=== PATIENT | female | born 1980 | race American Indian/Alaskan Native ===

== ENCOUNTER 2019-01-08 20:25 | Emergency (ER) | payer SELFPAY ==
--- NOTE | 2019-01-08 21:13 | Emergency Department Report ---
Blank Doc - Documentation Documentation: This is a 38-year-old female that presents with acute on chronic intermittnet lower back pains. Denies any new injuries or urinary symptoms. This initial assessment/diagnostic orders/clinical plan/treatment(s) is/are subject to change based on patient's health status, clinical progression and re- assessment by fellow clinical providers in the ED. Further treatment and workup at subsequent clinical providers discretion. Patient/guardians urged not to elope from the ED as their condition may be serious if not clinically assessed and managed. Initial orders include: 1- Patient sent to [facility] for further evaluation and treatment
[2019-01-08 21:17] VITALS: BP 127/86
== END 2019-01-08 22:52 | disposition left against medical advice (07) ==
LOC: ED 20:25
DX: M54.5 Low back pain (principal); Z53.21 Procedure and treatment not carried out due to patient leaving prior to being seen by health care provider

== ENCOUNTER 2019-11-10 09:37 | Emergency (ER) | payer SELFPAY ==
[2019-11-10] MEDS ORDERED: ASPIRIN 325 MG TAB PO ONE (09:57)
--- NOTE | 2019-11-10 10:30 | XRay Report ---
CHEST 1 VIEW INDICATION: Chest Pain. COMPARISON: None FINDINGS: SUPPORT DEVICES: None. HEART: Within normal limits. LUNGS/PLEURA: No acute air space or interstitial disease. ADDITIONAL FINDINGS: None. IMPRESSION: 1. No acute findings. Signer Name: Arnol Haji MD Signed: 11/10/2019 10:26 AM Workstation Name: [id number]
[2019-11-10] MEDS ORDERED: HYDROmorphone 1 MG/1 ML INJ IV ONE ×2 (10:44→14:12)
[2019-11-10] MEDS ORDERED: SODIUM CHLORIDE 0.9% 1000 ML 2,000 ML IV ONE (10:44)
[2019-11-10] MEDS ORDERED: HALOPERIDOL LACTATE 5 MG/1 ML INJ IM ONE ×2 (10:44→14:12)
[2019-11-10 10:45] LABS: Basophils % (Auto) 0.4 % (0.0-1.8); Eosinophils % (Auto) 0.1 % (0.0-4.3); Hematocrit 36.5 % (30.3-42.9); Hemoglobin 12.3 gm/dl (10.1-14.3); Lymphocytes # (Auto) 1.1 K/mm3 (1.2-5.4); Lymphocytes % (Auto) 18.2 % (13.4-35.0); Mean Corpuscular HGB Conc 34 % (30-34); Mean Corpuscular Volume 85 fl (79-97); Monocytes # (Auto) 0.1 K/mm3 (0.0-0.8); Monocytes % (Auto) 2.3 % (0.0-7.3); Platelet Count 318 K/mm3 (140-440); Red Cell Distribution Width 13.7 % (13.2-15.2)
--- NOTE | 2019-11-10 10:46 | Emergency Department Report ---
ED General Adult HPI - General Chief complaint: Chest Pain Stated complaint: ABDOMINAL/CHEST PAIN/NAUSEA PUI?: No Time Seen by Provider: 11/10/19 10:22 Source: patient, RN notes reviewed, old records reviewed Mode of arrival: Ambulatory Limitations: No Limitations - History of Present Illness Initial comments: During the entire history and physical examination, I am chaperoned by sound equipment mechanic Sariah Jabari Patient is a 39-year-old female. She is not known to myself previously. She was seen in this hospital last month for lower abdominal pain, pelvic pain and cramping pain. She had extensive work-up performed, including pelvic ultrasound, negative for torsion, CT scan of the abdomen pelvis, negative for acute disease. She reports a history of CAD with stents x2. She states that she is not , and she denies DVT and pulmonary embolism risk factors. She presents with a complaint of crampy diffuse lower abdominal pain, which started at 3:00 this morning. Pain is sharp, throbbing and aching. It is all over. It is associated with nausea and vomiting. Emesis is clear, nonbloody and nonbilious. Patient denies irritative/obstructive urinary symptoms. She has occasional relief with hot bath, hot shower. She denies irritative/obstructive urinary symptoms. She has occasional exposure to cannabis. She states that she is not . She states her symptoms today are similar to prior symptoms from last month. Her symptoms are minimally alleviated initially with haloperidol, and hydromorphone. She also endorses anxiety. Her chest wall pain is central, and does not radiate to the back, arms or neck. There is vomiting for her abdominal pain. There is no diaphoresis. The patient does not endorse complaint of exertional shortness of breath. Her chest pain did not start until she started to have nausea and vomiting. -: Sudden, hour(s) Location: chest, abdomen Radiation: abdomen Quality: other Consistency: other Improves with: other Worsens with: other Associated Symptoms: other - Related Data Previous Rx's Medication Instructions Recorded Last Taken Type Ibuprofen [Motrin 600 MG tab] 600 mg PO Q8H PRN #20 tablet 10/03/19 Unknown Rx Ondansetron [Zofran Odt] 4 mg PO Q8HR PRN #14 tab.rapdis 10/03/19 Unknown Rx Acetaminophen [Non-Aspirin Extra 500 mg PO Q6HR PRN #30 tablet 11/10/19 Unknown Rx Strength] DOXYCYCLINE Hyclate [Vibramycin] 100 mg PO Q12HR #28 capsule 11/10/19 Unknown Rx Ghislaine Root [Ghislaine] 250 mg PO QID PRN #30 capsule 11/10/19 Unknown Rx Ibuprofen [Motrin] 600 mg PO Q8H PRN #30 tablet 11/10/19 Unknown Rx Metoclopramide [Reglan] 10 mg PO QID PRN #30 tablet 11/10/19 Unknown Rx Morphine Sulfate [Morphine Sulfate 7.5 mg PO Q6HR PRN #10 tablet 11/10/19 Unknown Rx IR] Allergies Allergy/AdvReac Type Severity Reaction Status Date / Time hydrocodone Allergy Seizure Verified 01/08/19 20:39 ED Review of Systems ROS: Stated complaint: ABDOMINAL/CHEST PAIN/NAUSEA Other details as noted in HPI Constitutional: denies: fever Eyes: denies: eye discharge ENT: denies: congestion Respiratory: denies: cough Cardiovascular: chest pain Gastrointestinal: abdominal pain, nausea, vomiting Genitourinary: denies: dysuria Musculoskeletal: myalgia Skin: denies: lesions Neurological: denies: headache Psychiatric: anxiety Hematological/Lymphatic: as per HPI ED Past Medical Hx - Past Medical History Previous Medical History?: Yes Hx Heart Attack/AMI: Yes (X 2 stents October 2018) Additional medical history: Herniated Disc - Surgical History Past Surgical History?: Yes Hx Coronary Stent: Yes (x 29 October 2018) - Social History Smoking Status: Never Smoker - Medications Home Medications: Home Medications Medication Instructions Recorded Confirmed Last Taken Type Ibuprofen [Motrin 600 MG tab] 600 mg PO Q8H PRN #20 tablet 10/03/19 Unknown Rx Ondansetron [Zofran Odt] 4 mg PO Q8HR PRN #14 tab.rapdis 10/03/19 Unknown Rx Acetaminophen [Non-Aspirin Extra 500 mg PO Q6HR PRN #30 tablet 11/10/19 Unknown Rx Strength] DOXYCYCLINE Hyclate [Vibramycin] 100 mg PO Q12HR #28 capsule 11/10/19 Unknown Rx Ghislaine Root [Ghislaine] 250 mg PO QID PRN #30 capsule 11/10/19 Unknown Rx Ibuprofen [Motrin] 600 mg PO Q8H PRN #30 tablet 11/10/19 Unknown Rx Metoclopramide [Reglan] 10 mg PO QID PRN #30 tablet 11/10/19 Unknown Rx Morphine Sulfate [Morphine Sulfate 7.5 mg PO Q6HR PRN #10 tablet 11/10/19 Unknown Rx IR] ED Physical Exam - General Limitations: Physical Limitation General appearance: alert, anxious, in distress - Head Head exam: Present: atraumatic, normocephalic - Eye Eye exam: Present: normal appearance, EOMI. Absent: nystagmus - ENT ENT exam: Present: normal exam, normal orophraynx, mucous membranes moist, normal external ear exam - Neck Neck exam: Present: normal inspection, full ROM. Absent: tenderness, meningismus - Respiratory Respiratory exam: Present: normal lung sounds bilaterally, chest wall tenderness. Absent: respiratory distress, wheezes, rales, rhonchi, stridor - Cardiovascular Cardiovascular Exam: Present: regular rate, normal rhythm, normal heart sounds. Absent: bradycardia, tachycardia, irregular rhythm, systolic murmur, diastolic murmur, rubs, gallop - GI/Abdominal GI/Abdominal exam: Present: soft, tenderness, normal bowel sounds. Absent: distended, guarding, rebound, rigid, pulsatile mass - External exam: Present: normal external exam. Absent: erythema, ecchymosis, bleeding Speculum exam: Present: normal speculum exam. Absent: erythema, vaginal discharge, foreign body, tissue, laceration Bi-manual exam: Present: cervical motion tendernes, adnexal tenderness, uterine tenderness, other (Chaperoned by sound equipment mechanic Jabari) - Extremities Exam Extremities exam: Present: normal inspection, full ROM, other (2+ pulses noted in the bilateral upper and lower extremities. There is no palpable cord. neg ative Homans sign. Muscular compartments are soft. The pelvis is stable.). Absent: pedal edema, calf tenderness - Back Exam Back exam: Present: normal inspection, full ROM, CVA tenderness (R). Absent: tenderness, CVA tenderness (L), paraspinal tenderness, vertebral tenderness - Neurological Exam Neurological exam: Present: alert, other (No facial droop. Tongue midline. Extraocular movements intact bilaterally. Facial sensation intact to light touch in V1, V2, V3 distribution bilaterally. 5 and a 5 strength in 4 extremities. Sensation intact to light touch in 4 extremities.). Absent: motor sensory deficit - Psychiatric Psychiatric exam: Present: anxious - Skin Skin exam: Present: warm, dry, intact, normal color. Absent: rash ED Course Vital Signs 11/10/19 11/10/19 11/10/19 10:04 10:11 10:30 Temperature 98.4 F Pulse Rate 90 94 H 88 Respiratory 13 24 Rate Blood Pressure 153/92 Blood Pressure [Left] O2 Sat by Pulse 99 100 100 Oximetry 11/10/19 11/10/19 11/10/19 11:00 11:11 11:30 Temperature Pulse Rate 79 Respiratory 18 Rate Blood Pressure 165/90 165/90 Blood Pressure 165/90 [Left] O2 Sat by Pulse 99 100 100 Oximetry 11/10/19 13:28 Temperature Pulse Rate 89 Respiratory 16 Rate Blood Pressure 138/79 Blood Pressure 138/79 [Left] O2 Sat by Pulse 100 Oximetry - Reevaluation(s) Reevaluation #1: 11/10/19 14:59 Differential diagnosis, including but not limited to: Costochondritis, GERD, gastritis, hiatal hernia, pneumonia, colitis, diverticulitis, appendicitis, ovarian cyst, dysfunctional uterine bleeding, pelvic inflammatory disease,, cyclic vomiting syndrome, cannabinoid hyperemesis syndrome Assessment and plan: 39-year-old female with a primary complaint of abdominal pain, nausea and vomiting, diffusely tender, required multiple medicines to help alleviate pain. She was ruled out for ovarian torsion last month. Her CT scan of the abdomen pelvis was negative last month. However, given her impressive pain and initial symptomatology, and obvious discomfort, I elected to obtain CT scan of the abdomen pelvis and repeat duplex ultrasound to exclude emergent interval change. Her objectively imaging studies are negative for acute disease. Her chest wall pain is reproducible. Patient's history of CAD with s tents is reported and appreciated, however, troponin negative x1, EKG #1 is fairly unremarkable, and she endorses her chest wall pain did not start until she started having abdominal pain, nausea and vomiting. I suspect that her chest wall pain is secondary to nausea and vomiting, secondary to abdominal pain. She at this point in time is not currently tachycardic, tachypneic or hypoxic, she denies DVT and pulmonary embolism risk factors, I find her to be low risk by Wells criteria, and she is PERC negative. Repeat troponin, repeat EKG pending. CT scan abdomen pelvis, pelvic ultrasound negative. Still having moderate diffuse abdominal tenderness, Patient will be remedicated. If we cannot control the patient's symptoms in the emergency room, assuming negative troponin and negative EKG x2, I would consider the patient medically suitable to follow-up as an outpatient. We will reassess. Reevaluation #2: 11/10/19 15:37 Patient's pain is much improved. Belly soft on repeat examination. On pelvic exam, the patient has exquisite cervical motion tenderness, uterine tenderness, and bilateral adnexal tenderness. She reports 1 sexual partner, no history of gonorrhea or chlamydia, and denies dyspareunia. Given recurrence of symptoms, nondiagnostic objective imaging, we will treat empirically for pelvic inflammatory disease. Appropriate counseling is provided to patient. Repeat troponin, repeat EKG pending at this time. No active vomiting at this time Reevaluation #3: 11/10/19 16:02 Repeat EKG is unchanged from prior. The patient feels improved. Wet prep shows trichomoniasis. Patient updated and given appropriate counseling ED Medical Decision Making - Lab Data Result diagrams: 11/10/19 10:27 11/10/19 10:27 Lab Results 11/10/19 11/10/19 11/10/19 Range/Units 10:27 10:27 12:18 WBC 6.3 (4.5-11.0) K/mm3 RBC 4.30 (3.65-5.03) M/mm3 Hgb 12.3 (10.1-14.3) gm/dl Hct 36.5 (30.3-42.9) % MCV 85 (79-97) fl MCH 29 (28-32) pg MCHC 34 (30-34) % RDW 13.7 (13.2-15.2) % Plt Count 318 (140-440) K/mm3 Lymph % (Auto) 18.2 (13.4-35.0) % Hale % (Auto) 2.3 (0.0-7.3) % Eos % (Auto) 0.1 (0.0-4.3) % Baso % (Auto) 0.4 (0.0-1.8) % Lymph # 1.1 L (1.2-5.4) K/mm3 Hale # 0.1 (0.0-0.8) K/mm3 Eos # 0.0 (0.0-0.4) K/mm3 Baso # 0.0 (0.0-0.1) K/mm3 Seg Neutrophils % 79.0 H (40.0-70.0) % Seg Neutrophils # 5.0 (1.8-7.7) K/mm3 Sodium 136 L (137-145) mmol/L Potassium 4.1 (3.6-5.0) mmol/L Chloride 100.1 (98-107) mmol/L Carbon Dioxide 22 (22-30) mmol/L Anion Gap 18 mmol/L BUN 8 (7-17) mg/dL Creatinine 0.5 L (0.7-1.2) mg/dL Estimated GFR > 60 ml/min BUN/Creatinine Ratio 16 % Glucose 140 H (65-100) mg/dL Calcium 9.3 (8.4-10.2) mg/dL Troponin T < 0.010 (0.00-0.029) ng/mL Lipase (13-60) units/L HCG, Quant < 2 (0-4) mIU/mL Urine Color (Yellow) Urine Turbidity (Clear) Urine pH (5.0-7.0) Ur Specific [place] (1.003-1.030) Urine Protein (Negative) mg/dL Urine Glucose (UA) (Negative) mg/dL Urine Ketones (Negative) mg/dL Urine Blood (Negative) Urine Nitrite (Negative) Urine Bilirubin (Negative) Urine Urobilinogen (<2.0) mg/dL Ur Leukocyte Esterase (Negative) Urine WBC (Auto) (0.0-6.0) /HPF Urine RBC (Auto) (0.0-6.0) /HPF U Epithel Cells (Auto) (0-13.0) /HPF Urine Mucus /HPF Urine HCG, Qual (Negative) Urine Opiates Screen Urine Methadone Screen Ur Barbiturates Screen Ur Phencyclidine Scrn Ur Amphetamines Screen U Benzodiazepines Scrn Urine Cocaine Screen U Marijuana (THC) Screen Drugs of Abuse Note 11/10/19 11/10/19 11/10/19 Range/Units 12:18 Unknown Unknown WBC (4.5-11.0) K/mm3 RBC (3.65-5.03) M/mm3 Hgb (10.1-14.3) gm/dl Hct (30.3-42.9) % MCV (79-97) fl MCH (28-32) pg MCHC (30-34) % RDW (13.2-15.2) % Plt Count (140-440) K/mm3 Lymph % (Auto) (13.4-35.0) % Hale % (Auto) (0.0-7.3) % Eos % (Auto) (0.0-4.3) % Baso % (Auto) (0.0-1.8) % Lymph # (1.2-5.4) K/mm3 Hale # (0.0-0.8) K/mm3 Eos # (0.0-0.4) K/mm3 Baso # (0.0-0.1) K/mm3 Seg Neutrophils % (40.0-70.0) % Seg Neutrophils # (1.8-7.7) K/mm3 Sodium (137-145) mmol/L Potassium (3.6-5.0) mmol/L Chloride (98-107) mmol/L Carbon Dioxide (22-30) mmol/L Anion Gap mmol/L BUN (7-17) mg/dL Creatinine (0.7-1.2) mg/dL Estimated GFR ml/min BUN/Creatinine Ratio % Glucose (65-100) mg/dL Calcium (8.4-10.2) mg/dL Troponin T (0.00-0.029) ng/mL Lipase 13 (13-60) units/L HCG, Quant (0-4) mIU/mL Urine Color Yellow (Yellow) Urine Turbidity Clear (Clear) Urine pH 9.0 H (5.0-7.0) Ur Specific [place] 1.023 (1.003-1.030) Urine Protein 30 mg/dl (Negative) mg/dL Urine Glucose (UA) Neg (Negative) mg/dL Urine Ketones 80 (Negative) mg/dL Urine Blood Neg (Negative) Urine Nitrite Neg (Negative) Urine Bilirubin Neg (Negative) Urine Urobilinogen < 2.0 (<2.0) mg/dL Ur Leukocyte Esterase Neg (Negative) Urine WBC (Auto) 2.0 (0.0-6.0) /HPF Urine RBC (Auto) 12.0 (0.0-6.0) /HPF U Epithel Cells (Auto) 1.0 (0-13.0) /HPF Urine Mucus 3+ /HPF Urine HCG, Qual (Negative) Urine Opiates Screen Presumptive negative Urine Methadone Screen Presumptive negative Ur Barbiturates Screen Presumptive negative Ur Phencyclidine Scrn Presumptive negative Ur Amphetamines Screen Presumptive negative U Benzodiazepines Scrn Presumptive negative Urine Cocaine Screen Presumptive negative U Marijuana (THC) Screen Presumptive negative Drugs of Abuse Note Disclamer 11/10/19 Range/Units Unknown WBC (4.5-11.0) K/mm3 RBC (3.65-5.03) M/mm3 Hgb (10.1-14.3) gm/dl Hct (30.3-42.9) % MCV (79-97) fl MCH (28-32) pg MCHC (30-34) % RDW (13.2-15.2) % Plt Count (140-440) K/mm3 Lymph % (Auto) (13.4-35.0) % Hale % (Auto) (0.0-7.3) % Eos % (Auto) (0.0-4.3) % Baso % (Auto) (0.0-1.8) % Lymph # (1.2-5.4) K/mm3 Hale # (0.0-0.8) K/mm3 Eos # (0.0-0.4) K/mm3 Baso # (0.0-0.1) K/mm3 Seg Neutrophils % (40.0-70.0) % Seg Neutrophils # (1.8-7.7) K/mm3 Sodium (137-145) mmol/L Potassium (3.6-5.0) mmol/L Chloride (98-107) mmol/L Carbon Dioxide (22-30) mmol/L Anion Gap mmol/L BUN (7-17) mg/dL Creatinine (0.7-1.2) mg/dL Estimated GFR ml/min BUN/Creatinine Ratio % Glucose (65-100) mg/dL Calcium (8.4-10.2) mg/dL Troponin T (0.00-0.029) ng/mL Lipase (13-60) units/L HCG, Quant (0-4) mIU/mL Urine Color (Yellow) Urine Turbidity (Clear) Urine pH (5.0-7.0) Ur Specific [place] (1.003-1.030) Urine Protein (Negative) mg/dL Urine Glucose (UA) (Negative) mg/dL Urine Ketones (Negative) mg/dL Urine Blood (Negative) Urine Nitrite (Negative) Urine Bilirubin (Negative) Urine Urobilinogen (<2.0) mg/dL Ur Leukocyte Esterase (Negative) Urine WBC (Auto) (0.0-6.0) /HPF Urine RBC (Auto) (0.0-6.0) /HPF U Epithel Cells (Auto) (0-13.0) /HPF Urine Mucus /HPF Urine HCG, Qual Negative (Negative) Urine Opiates Screen Urine Methadone Screen Ur Barbiturates Screen Ur Phencyclidine Scrn Ur Amphetamines Screen U Benzodiazepines Scrn Urine Cocaine Screen U Marijuana (THC) Screen Drugs of Abuse Note - EKG Data -: EKG Interpreted by Dc EKG shows normal: sinus rhythm Rate: normal - EKG Data 11/10/19 15:01 Sinus rhythm, 89 bpm, normal axis, QTC prolonged, high left ventricular voltage, and motion artifact. This EKG is not a STEMI. Do not have a prior EKG available for comparison at this time. - Radiology Data Radiology results: report reviewed, image reviewed Print Report Referring Physician: YAIMA BARCLAY Patient Name: ARMEN COOLEY Date of : 1980 Sex: Female Report Date: 2019-11-10 Report Status: [place] [address] Ultrasound Report Signed Patient: ARMEN COOLEY MR#: [id number] : 1980 Acct:[id number] Age/Sex: 39 / F ADM Date: 11/10/19 Loc: ED Attending Dr: Ordering Physician: YAIMA BARCLAY MD Date of Service: 11/10/19 Procedure(s): US pelvis duplex doppler comp Accession Number(s): [id number] cc: YAIMA BARCLAY MD Pelvic Ultrasound HISTORY: acute lower abd pain n/v. TECHNIQUE: Grayscale and color imaging performed. COMPARISON: CT abdomen/pelvis and pelvic ultrasound from 10/03/2019 FINDINGS: Uterus measures 5.2 x 3.4 x 4.4 cm with endometrial echocomplex measuring 8 mm. There is a simple cyst in the left ovary measuring 2.4 cm. Ovaries are otherwise unremarkable with no pelvic free fluid. IMPRESSION: Simple left ovarian cyst. Otherwise unremarkable exam. Signer Name: Arnol Haji MD Signed: 11/10/2019 12:10 PM Workstation Name: [id number] Transcribed By: TARA Dictated By: Arnol Haji MD Electronically Authenticated By: Arnol Haji MD Signed Date/Time: 11/10/19 1210 DD/ 1208 Print Report Referring Physician: YAIMA BARCLAY Patient Name: ARMEN COOLEY Date of : 1980 Sex: Female Report Date: 2019-11-10 Report Status: Finalized Findings [facility] [address] [place] [address] Cat Scan Report Signed Patient: ARMEN COOLEY MR#: [id number] : 1980 Acct:[id number] Age/Sex: 39 / F ADM Date: 11/10/19 Loc: ED Attending Dr: Ordering Physician: YAIMA BARCLAY MD Date of Service: 11/10/19 Procedure(s): CT abdomen pelvis w con Accession Number(s): [id number] cc: YAIMA BARCLAY MD CT ABDOMEN AND PELVIS WITH CONTRAST INDICATION / CLINICAL INFORMATION: MAIN: acute lower abd pain n/v OMNIPAQUE 300 100ML NEG PREG TEST. TECHNIQUE: Axial CT images were obtained through the abdomen and pelvis after 100 mL Omnipaque [address] scans at this location are performed using CT dose reduction for ALARA by means of automated exposure control. COMPARISON: CT abdomen pelvis 10/03/2019 FINDINGS: LOWER CHEST: No significant abnormality. LIVER: No significant abnormality. BILIARY SYSTEM: No significant abnormality. PANCREAS: No significant abnormality. SPLEEN: No significant abnormality. ADRENALS: No significant abnormality. KIDNEYS and URETERS: No significant abnormality. STOMACH / BOWEL: No significant abnormality. PERITONEUM: No free fluid. No free air. No fluid collection. LYMPH NODES: No significant adenopathy. VASCULAR STRUCTURES: No significant abnormality. URINARY BLADDER: No significant abnormality. REPRODUCTIVE ORGANS: 2.0 cm dominant follicle/functional cyst in the left ovary. ADDITIONAL FINDINGS: None. SKELETAL SYSTEM: Mild degenerative sclerotic change adjacent to the left sacroiliac joint. IMPRESSION: 1. No acute process identified within the abdomen or pelvis to account for patient's abdominal pain. Signer Name: Jonna Montoya MD Signed: 11/10/2019 1:28 PM Workstation Name: [id number] Transcribed By: [facility] Dictated By: Jonna Montoya MD Electronically Authenticated By: Jonna Montoya MD Signed Date/Time: 11/10/19 1328 DD/ 1324 TD/TT: Print Report Referring Physician: YAIMA BARCLAY Patient Name: ARMEN COOLEY Date of : 1980 Sex: Female Report Date: 2019-11-10 Report Status: Finalized Findings [facility] [address] [place] [address] XRay Report Signed Patient: ARMEN COOLEY MR#: [id number] : 1980 Acct:[id number] Age/Sex: 39 / F ADM Date: 11/10/19 Loc: ED Attending Dr: Ordering Physician: YAIMA BARCLAY MD Date of Service: 11/10/19 Procedure(s): XR chest 1V ap Accession Number(s): [id number] cc: YAIMA BARCLAY MD Fluoro Time In Minutes: CHEST 1 VIEW INDICATION: Chest Pain. COMPARISON: None FINDINGS: SUPPORT DEVICES: None. HEART: Within normal limits. LUNGS/PLEURA: No acute air space or interstitial disease. ADDITIONAL FINDINGS: None. IMPRESSION: 1. No acute findings. Signer Name: rAnol Haji MD Signed: 11/10/2019 10:26 AM Workstation Name: [id number] Transcribed By: Dictated By: Arnol Haji MD Electronically Authenticated By: Arnol Haji MD Signed Date/Time: 11/10/19 1026 DD/ 1025 TD/TT: Critical care attestation.: If time is entered above; I have spent that time in minutes in the direct care of this critically ill patient, excluding procedure time. ED Disposition Clinical Impression: Acute abdominal pain, Pelvic inflammatory disease, Chest wall pain, Anxiety, Trichomoniasis Nausea and vomiting Qualifiers: Vomiting type: unspecified Vomiting Intractability: non-intractable Qualified Code(s): R11.2 - Nausea with vomiting, unspecified Disposition: DC-01 TO HOME OR SELFCARE Is pt being admited?: No Does the pt Need Aspirin: No Condition: Stable Instructions: Pelvic Inflammatory Disease (ED) Additional Instructions: Please please drink at least 4 to 6 cups of water per day indefinitely. Do not take metformin medication for the next 2 days. Follow-up with a supervisory forester within the next week. Take aspirin on a daily basis, 81 mg [id number]. Follow-up with a cabinet maker or primary care doctor for complaint of chest pain within the next 3 to 5 days. Follow-up with a supervisory forester within the recommended timeframe. Minimize consumption of alcohol, and exposure to tobacco, marijuana, and do not smoke cigarettes, or marijuana. Take the antibiotics, pain medication, nausea medication as needed and directed. . Given all this, you'll be treated empirically for disease called pelvic inflammatory disease. We typically treat young females with unexplained lower abdominal pain to protect your ability to have children safely in the future. Cultures were sent today, and results will be available next 3-5 days. Please have your primary care doctor call the medical records department to obtain your culture results. Take the antibiotic therapy as directed. Take the nausea medication and pain medication as directed. I recommend outpatient testing for sexually transmitted diseases, including hepatitis, syphilis and HIV. I also recommend that you abstain from sexual activity until you have completed her antibiotic therapy, a physician states that it is safe for you to resume sexual activity, and any partners that you have been sexually active with have been tested/treated/evaluated for sexual transmitted diseases. I recommend that you return to the ER right away with worsening pain, migration of pain, intractable nausea/vomiting, inability tolerate liquid feeds. Prescriptions: Ghislaine Root [Ghislaine] 250 mg PO QID PRN #30 capsule PRN Reason: Nausea Morphine Sulfate [Morphine Sulfate IR] 7.5 mg PO Q6HR PRN #10 tablet PRN Reason: Pain , Severe (7-10) Ibuprofen [Motrin] 600 mg PO Q8H PRN #30 tablet PRN Reason: Pain Acetaminophen [Non-Aspirin Extra Strength] 500 mg PO Q6HR PRN #30 tablet PRN Reason: Pain , Severe (7-10) Metoclopramide [Reglan] 10 mg PO QID PRN #30 tablet PRN Reason: Nausea DOXYCYCLINE Hyclate [Vibramycin] 100 mg PO Q12HR #28 capsule Referrals: [facility] [Provider Group] - 3-5 Days [facility] [Provider Group] - 3-5 Days [facility] [Provider Group[facility] - 3-5 Days [facility] [Provider Group] - 3-5 Days [facility] [Provider Group] - 3-5 Days
[2019-11-10 11:06] LABS: BUN/Creatinine Ratio 16; Blood Urea Nitrogen 8 mg/dL (7-17); Calcium 9.3 mg/dL (8.4-10.2); Hemolysis Index 4
[2019-11-10 11:28] LABS: Amphetamine Screen,Urine PRESUMPTIVE NEGATIVE; Benzodiazepines Screen,Urine PRESUMPTIVE NEGATIVE; Cannabinoid Screen,Urine PRESUMPTIVE NEGATIVE; Cocaine Screen,Urine PRESUMPTIVE NEGATIVE; Methadone Screen,Urine PRESUMPTIVE NEGATIVE; Opiate Screen,Urine PRESUMPTIVE NEGATIVE
[2019-11-10 11:36] LABS: Bilirubin,Urine NEG (Negative); Blood,Urine NEG (Negative); Color,Urine Yellow (Yellow); Mucus,Urine 3+ /HPF; Urobilinogen,Urine < 2.0 mg/dL (<2.0)
[2019-11-10 12:01] LABS: HCG Qualitative,Urine Negative (Negative)
--- NOTE | 2019-11-10 12:14 | Ultrasound Report ---
Pelvic Ultrasound HISTORY: acute lower abd pain n/v. TECHNIQUE: Grayscale and color imaging performed. COMPARISON: CT abdomen/pelvis and pelvic ultrasound from 10/03/2019 FINDINGS: Uterus measures 5.2 x 3.4 x 4.4 cm with endometrial echocomplex measuring 8 mm. There is a simple cyst in the left ovary measuring 2.4 cm. Ovaries are otherwise unremarkable with no pelvic bulmaro e fluid. IMPRESSION: Simple left ovarian cyst. Otherwise unremarkable exam. Signer Name: Arnol Haji MD Signed: 11/10/2019 12:10 PM Workstation Name: [id number]
[2019-11-10 13:29] VITALS: BP 138/79
--- NOTE | 2019-11-10 13:33 | Cat Scan Report ---
CT ABDOMEN AND PELVIS WITH CONTRAST INDICATION / CLINICAL INFORMATION: MAIN: acute lower abd pain n/v OMNIPAQUE 300 100ML NEG PREG TEST. TECHNIQUE: Axial CT images were obtained through the abdomen and pelvis after 100 mL Omnipaque [address] scans at this location are performed using CT dose reduction for ALARA by means of automated exposure control. COMPARISON: CT abdomen pelvis 10/03/2019 FINDINGS: LOWER CHEST: No significant abnormality. LIVER: No significant abnormality. BILIARY SYSTEM: No significant abnormality. PANCREAS: No significant abnormality. SPLEEN: No significant abnormality. ADRENALS: No significant abnormality. KIDNEYS and URETERS: No significant abnormality. STOMACH / BOWEL: No significant abnormality. PERITONEUM: No free fluid. No free air. No fluid collection. LYMPH NODES: No significant adenopathy. VASCULAR STRUCTURES: No significant abnormality. URINARY BLADDER: No significant abnormality. REPRODUCTIVE ORGANS: 2.0 cm dominant follicle/functional cyst in the left ovary. ADDITIONAL FINDINGS: None. SKELETAL SYSTEM: Mild degenerative sclerotic change adjacent to the left sacroiliac joint. IMPRESSION: 1. No acute process identified within the abdomen or pelvis to account for patient's abdominal pain. Signer Name: Jonna Montoya MD Signed: 11/10/2019 1:28 PM Workstation Name: [id number]
[2019-11-10 14:05] LABS: INR 1.13 (0.87-1.13)
[2019-11-10] MEDS ORDERED: diphenhydrAMINE 50 MG/ML VIAL IV ONE (14:12)
[2019-11-10] MEDS ORDERED: KETOROLAC 30 MG/1 ML INJ IV ONE (14:53)
[2019-11-10] MEDS ORDERED: DOXYCYCLINE 100 MG CAP PO ONE (15:36)
[2019-11-10] MEDS ORDERED: metroNIDAZOLE 500 MG TAB PO STA (15:59)
[2019-11-10 16:25] LABS: Alanine Aminotransferase 14 units/L (7-56); Albumin 4.3 g/dL (3.9-5)
[2019-11-10 16:26] LABS: Bilirubin,Direct < 0.2 mg/dL (0-0.2)
== END 2019-11-10 16:58 | disposition home or self-care (01) ==
LOC: ED 09:37
DX: N73.9 Female pelvic inflammatory disease, unspecified (principal); A59.9 Trichomoniasis, unspecified; R07.89 Other chest pain; F41.9 Anxiety disorder, unspecified; R10.30 Lower abdominal pain, unspecified; R11.2 Nausea with vomiting, unspecified; I25.2 Old myocardial infarction; I25.10 Atherosclerotic heart disease of native coronary artery without angina pectoris; Z95.5 Presence of coronary angioplasty implant and graft; Z79.899 Other long term (current) drug therapy; Z88.8 Allergy status to other drugs, medicaments and biological substances
CPT/HCPCS: 36415; 71045; 74177; 80048; 80076; 80307; 81001; 81025; 82550; 83690; 83735; 84484; 84702; 85025; 85610; 87086; 87210; 87591; 93005; 93975; 96372; 96374; 96375; 96376; 99285; J1170; J1200; J1630; J1885; J7030; Q9967; J0696

== ENCOUNTER 2020-10-01 20:13 | Emergency (ER) | payer SELFPAY ==
[2020-10-01] MEDS ORDERED: ONDANSETRON 4 MG/2 ML INJ IV ONE (21:40)
[2020-10-01] MEDS ORDERED: MORPHINE 4 MG/1 ML INJ IV ONE (21:40)
[2020-10-01 22:03] LABS: Basophils # (Auto) 0.1 K/mm3 (0.0-0.1); Basophils % (Auto) 1.2 % (0.0-1.8); Eosinophils # (Auto) 0.1 K/mm3 (0.0-0.4); Eosinophils % (Auto) 1.8 % (0.0-4.3); Lymphocytes # (Auto) 3.4 K/mm3 (1.2-5.4); Lymphocytes % (Auto) 47.2 % (13.4-35.0); Mean Corpuscular HGB Conc 33 % (30-34); Mean Corpuscular Volume 87 fl (79-97); Monocytes # (Auto) 0.4 K/mm3 (0.0-0.8); Monocytes % (Auto) 5.8 % (0.0-7.3); Platelet Count 286 K/mm3 (140-440); Red Blood Count 3.82 M/mm3 (3.65-5.03); Red Cell Distribution Width 14.1 % (13.2-15.2)
--- NOTE | 2020-10-01 22:10 | XRay Report ---
CHEST 1 VIEW 10/01/2020 9:02 PM INDICATION / CLINICAL INFORMATION: Chest Pain. COMPARISON: 11/10/2019 FINDINGS: SUPPORT DEVICES: None. HEART / MEDIASTINUM: No significant abnormality. LUNGS / PLEURA: No significant pulmonary or pleural abnormality. No pneumothorax. ADDITIONAL FINDINGS: No significant additional findings. IMPRESSION: 1. No acute findings. Signer Name: Tamir Beltran MD Signed: 10/01/2020 10:05 PM Workstation Name: [id number]
[2020-10-01 22:13] LABS: INR 0.92 (0.87-1.13)
[2020-10-01 22:14] LABS: Partial Thromboplastin Time 27.6 Sec. (24.2-36.6)
[2020-10-01 22:24] LABS: Alanine Aminotransferase 9 units/L (7-56); Albumin 3.7 g/dL (3.9-5); Blood Urea Nitrogen 11 mg/dL (7-17); Calcium 8.6 mg/dL (8.4-10.2); Hemolysis Index 13
[2020-10-01 22:29] LABS: BUN/Creatinine Ratio 22
--- NOTE | 2020-10-01 22:45 | Emergency Department Report ---
ED General Adult HPI - General Chief complaint: Neuro Symptoms/Deficit Stated complaint: FLUTTER IN CHEST Time Seen by Provider: 10/01/20 20:17 Source: patient, EMS Mode of arrival: Stretcher Limitations: No Limitations - History of Present Illness Initial comments: The patient presents to the emergency department the chief complaint of left- sided chest pain that has been present for the last day. She states there is no radiation of the chest pain and describes it as a tightness in nature. Patient denies shortness of breath. Patient also complains of having a herniated disc and her back as well as her neck with radiation of pain and numbness into the left arm. Patient states 2 years ago she had a heart attack and takes an aspirin daily. Patient denies any shortness of breath and states the chest pain has been continuous. -: Sudden Location: chest Radiation: non-radiation Severity scale (0 -10): 7 Quality: other (Tightness) Consistency: constant Improves with: none Worsens with: none Associated Symptoms: denies other symptoms - Related Data Previous Rx's Medication Instructions Recorded Last Taken Type Ibuprofen [Motrin 600 MG tab] 600 mg PO Q8H PRN #20 tablet 10/03/19 Unknown Rx Ondansetron [Zofran Odt] 4 mg PO Q8HR PRN #14 tab.rapdis 10/03/19 Unknown Rx Acetaminophen [Non-Aspirin Extra 500 mg PO Q6HR PRN #30 tablet 11/10/19 Unknown Rx Strength] DOXYCYCLINE Hyclate [Vibramycin] 100 mg PO Q12HR #28 capsule 11/10/19 Unknown Rx Ghislaine Root [Ghislaine] 250 mg PO QID PRN #30 capsule 11/10/19 Unknown Rx Ibuprofen [Motrin] 600 mg PO Q8H PRN #30 tablet 11/10/19 Unknown Rx Metoclopramide [Reglan] 10 mg PO QID PRN #30 tablet 11/10/19 Unknown Rx Morphine Sulfate [Morphine Sulfate 7.5 mg PO Q6HR PRN #10 tablet 11/10/19 Unknown Rx IR] Allergies Allergy/AdvReac Type Severity Reaction Status Date / Time hydrocodone Allergy Seizure Verified 01/08/19 20:39 ED Review of Systems ROS: Stated complaint: FLUTTER IN CHEST Other details as noted in HPI Comment: All other systems reviewed and negative Constitutional: denies: chills, fever Eyes: denies: eye pain, eye discharge, vision change ENT: denies: ear pain, throat pain Respiratory: denies: cough, shortness of breath, wheezing Cardiovascular: chest pain. denies: palpitations Endocrine: no symptoms reported Gastrointestinal: denies: abdominal pain, nausea, diarrhea Genitourinary: denies: urgency, dysuria, discharge Musculoskeletal: denies: back pain, joint swelling, arthralgia Skin: denies: rash, lesions Neurological: denies: headache, weakness, paresthesias Psychiatric: denies: anxiety, depression Hematological/Lymphatic: denies: easy bleeding, easy bruising ED Past Medical Hx - Past Medical History Previous Medical History?: Yes Hx Heart Attack/AMI: Yes (X 2 stents October 2018) Additional medical history: Herniated Disc - Surgical History Past Surgical History?: Yes Hx Coronary Stent: Yes (x 29 October 2018) - Social History Smoking Status: Never Smoker Substance Use Type: None - Medications Home Medications: Home Medications Medication Instructions Recorded Confirmed Last Taken Type Ibuprofen [Motrin 600 MG tab] 600 mg PO Q8H PRN #20 tablet 10/03/19 10/02/20 Unknown Rx Ondansetron [Zofran Odt] 4 mg PO Q8HR PRN #14 tab.rapdis 10/03/19 10/02/20 Unknown Rx Acetaminophen [Non-Aspirin Extra 500 mg PO Q6HR PRN #30 tablet 11/10/19 10/02/20 Unknown Rx Strength] DOXYCYCLINE Hyclate [Vibramycin] 100 mg PO Q12HR #28 capsule 11/10/19 10/02/20 Unknown Rx Ghislaine Root [Ghislaine] 250 mg PO QID PRN #30 capsule 11/10/19 10/02/20 Unknown Rx Ibuprofen [Motrin] 600 mg PO Q8H PRN #30 tablet 11/10/19 10/02/20 Unknown Rx Metoclopramide [Reglan] 10 mg PO QID PRN #30 tablet 11/10/19 10/02/20 Unknown Rx Morphine Sulfate [Morphine Sulfate 7.5 mg PO Q6HR PRN #10 tablet 11/10/19 10/02/20 Unknown Rx IR] ED Physical Exam - General Limitations: No Limitations General appearance: alert, in no apparent distress - Head Head exam: Present: atraumatic, normocephalic - Eye Eye exam: Present: normal appearance, PERRL - ENT ENT exam: Present: mucous membranes moist - Neck Neck exam: Present: normal inspection - Respiratory Respiratory exam: Present: normal lung sounds bilaterally. Absent: respiratory distress - Cardiovascular Cardiovascular Exam: Present: regular rate, normal rhythm. Absent: systolic murmur, diastolic murmur, rubs, gallop - GI/Abdominal GI/Abdominal exam: Present: soft, normal bowel sounds. Absent: distended, tenderness - Extremities Exam Extremities exam: Present: normal inspection - Back Exam Back exam: Present: normal inspection - Neurological Exam Neurological exam: Present: alert, oriented X3, CN II-XII intact. Absent: motor sensory deficit - Psychiatric Psychiatric exam: Present: normal affect, normal mood - Skin Skin exam: Present: warm, dry, intact, normal color. Absent: rash ED Course Vital Signs 10/01/20 10/01/20 10/01/20 20:24 20:31 20:35 Temperature 98.7 F Pulse Rate 83 84 Respiratory 14 20 Rate Blood Pressure 150/92 O2 Sat by Pulse 99 Oximetry 10/01/20 10/01/20 10/02/20 21:00 21:50 02:03 Temperature Pulse Rate 78 Respiratory 11 L 18 18 Rate Blood Pressure 142/88 O2 Sat by Pulse 99 Oximetry ED Medical Decision Making - Lab Data Result diagrams: 10/01/20 21:45 10/01/20 21:45 Lab Results 10/01/20 10/01/20 10/01/20 Range/Units 21:45 21:45 21:45 WBC 7.3 (4.5-11.0) K/mm3 RBC 3.82 (3.65-5.03) M/mm3 Hgb 11.0 (10.1-14.3) gm/dl Hct 33.0 (30.3-42.9) % MCV 87 (79-97) fl MCH 29 (28-32) pg MCHC 33 (30-34) % RDW 14.1 (13.2-15.2) % Plt Count 286 (140-440) K/mm3 Lymph % (Auto) 47.2 H (13.4-35.0) % Kane % (Auto) 5.8 (0.0-7.3) % Eos % (Auto) 1.8 (0.0-4.3) % Baso % (Auto) 1.2 (0.0-1.8) % Lymph # (Auto) 3.4 (1.2-5.4) K/mm3 Kane # (Auto) 0.4 (0.0-0.8) K/mm3 Eos # (Auto) 0.1 (0.0-0.4) K/mm3 Baso # (Auto) 0.1 (0.0-0.1) K/mm3 Seg Neutrophils % 44.0 (40.0-70.0) % Seg Neutrophils # 3.2 (1.8-7.7) K/mm3 PT 12.3 (12.2-14.9) Sec. INR 0.92 (0.87-1.13) APTT 27.6 (24.2-36.6) Sec. D-Dimer 276.03 H (0-234) ng/mlDDU Sodium 139 (137-145) mmol/L Potassium 3.7 (3.6-5.0) mmol/L Chloride 105.2 (98-107) mmol/L Carbon Dioxide 23 (22-30) mmol/L Anion Gap 15 mmol/L BUN 11 (7-17) mg/dL Creatinine 0.5 L (0.6-1.2) mg/dL Estimated GFR > 60 ml/min BUN/Creatinine Ratio 22 % Glucose 84 (65-100) mg/dL Calcium 8.6 (8.4-10.2) mg/dL Total Bilirubin 0.20 (0.1-1.2) mg/dL AST 15 (5-40) units/L ALT 9 (7-56) units/L Alkaline Phosphatase 74 (35-129) units/L Troponin T < 0.010 (0.00-0.029) ng/mL Total Protein 6.9 (6.3-8.2) g/dL Albumin 3.7 L (3.9-5) g/dL Albumin/Globulin Ratio 1.2 % Lipase 43 (13-60) units/L - EKG Data -: EKG Interpreted by Me EKG shows normal: sinus rhythm Rate: normal - Radiology Data Radiology results: report reviewed - Medical Decision Making Patient given morphine for chest and hip pain with significant improvement of her symptoms Due to the patient's elevated BNP a CT angiogram of the chest was ordered Patient is troponins negative x2 CT angiogram of the chest is negative for PE Upon going to the patient's room to discuss her results the patient had eloped before laboratory imaging studies could be discussed Critical care attestation.: If time is entered above; I have spent that time in minutes in the direct care of this critically ill patient, excluding procedure time. ED Disposition Clinical Impression: Nonspecific chest pain, Radiculopathy Disposition: ELOPED Is pt being admited?: No Does the pt Need Aspirin: No Condition: Stable Instructions: Nonspecific Chest Pain, Adult, Radicular Pain Referrals: PRIMARY CARE, [Primary Care Provider] - 3-5 Days ABDULAZIZ MEYERS MD [Staff Physician] - 3-5 Days Heart Score - HEART Score History: Slightly suspicious EKG: Normal Age: < 45 Risk factors: 1-2 risk factors Troponin: < normal limit HEART Score: 1 - EKG Read Time Time EKG Completed: 00:00 EKG Read Time: 00:00
[2020-10-02] MEDS ORDERED: HYDROcodone/ACETAMINOPHEN 10-325MG TAB PO ONE (01:51)
--- NOTE | 2020-10-02 01:54 | Cat Scan Report ---
CTA CHEST WITH IV CONTRAST INDICATION / CLINICAL INFORMATION: Patient complains of chest pain with S.O.B., elevated D-dimer. TECHNIQUE: Axial CT images were obtained through the chest after injection of 100 mL Omnipaque 350 IV contrast. 3 plane MIP and/or 3D reconstructions were produced. All CT scans at this location are performed usin g CT dose reduction for ALARA by means of automated exposure control. COMPARISON: Chest radiograph one day prior FINDINGS: PULMONARY ARTERIES: No pulmonary emboli. THORACIC AORTA: No significant abnormality. HEART: No significant abnormality. CORONARY ARTERIES: No significant calcification. PLEURA: No pleural effusion. No pneumothorax. LYMPH NODES: No significant adenopathy. LUNGS: No acute air space or interstitial disease. ADDITIONAL FINDINGS: None. UPPER ABDOMEN: No acute findings. SKELETAL STRUCTURES: No significant osseous abnormality. IMPRESSION: 1. No CT evidence for pulmonary embolism. 2. No acute findings. Signer Name: Jonna Montoya MD Signed: 10/02/2020 1:50 AM Workstation Name: [id number]
[2020-10-02] MEDS ORDERED: oxyCODONE /ACETAMINOPHEN 5-325MG TAB PO ONE (01:57)
[2020-10-02 05:49] VITALS: BP 140/86
--- NOTE | 2020-10-02 17:53 | Electrocardiograph Report ---
[facility] Test Date: 2020-10-01 Test Time: 20:29:06 Pat Name: ARMEN COOLEY Department: Room: Gender: F Processing Engineer: TODD : [id number] Requested By: JESI CHERRY Order Number: [id number] Reading MD: Jhonathan Gonzalez Measurements Intervals Vale Rate: 81 P: 62 MT: 177 QRS: 73 QRSD: 76 T: 41 QT: 369 QTc: 430 Interpretive Statements Sinus rhythm Consider left ventricular hypertrophy No previous ECG available for comparison Electronically Signed On 10-02-2020 17:53:21 EDT by Jhonathan Gonzalez
== END 2020-10-02 02:40 | disposition home or self-care (01) ==
LOC: ED 20:13
DX: M54.10 Radiculopathy, site unspecified (principal); R07.89 Other chest pain; I25.2 Old myocardial infarction; Z79.899 Other long term (current) drug therapy; Z88.8 Allergy status to other drugs, medicaments and biological substances
CPT/HCPCS: 36415; 71045; 71275; 80053; 83690; 84484; 85025; 85379; 85610; 85730; 93005; 96374; 96375; 99285; J2270; J2405; Q9967